=== PATIENT | male | born 2000 | race Caucasian/White ===

== ENCOUNTER 2021-02-10 15:33 | Emergency (ER) | payer OTHER, SELFPAY ==
[2021-02-10 15:36] VITALS: BP 122/91; PULSE 107; RESP 18; TEMP 36.4; O2SAT 97; BMI 24.3
--- NOTE | 2021-02-10 15:46 | ED.VIS.GEN ---
History of Present Illness Chief Complaint: Upper Extremity Injury Narrative: Patient presents with a left shoulder dislocation while playing volleyball. He tells me this is his fifth time dislocating his shoulder. No new injury no other injury. Past medical history: none Medications: Reviewed Social history: Noncontributory Review of systems: Musculoskeletal: Left shoulder dislocation as in HPI Skin: No abrasions or lacerations Neurological: No weakness or paresthesias Hematologic: No easy bleeding or easy bruising Physical exam General: Patient does not appear in significant distress he is laying on the bed. Head: Normocephalic, Atraumatic Neck: No C-spine tenderness Cardiovascular: Regular rate, Regular rhythm Respiratory: No distress, CTA bilaterally Back: Nontender, Normal Inspection. Extremities: Left shoulder anterior inferior dislocation clinically. Neurovascular intact distally Skin: No abrasions, no lacerations Neurological: Normal strength and sensation Past Medical History - Allergies and Home Meds Allergies/Adverse Reactions: Allergies No Known Allergies Allergy (Verified 02/10/21 15:34) Primary Care Physician: Dirk Brown MD [STAFF PHYSICIAN] - 2 Days Physical Exam Vital Signs/Narrative: Vital Signs Temp Pulse Resp BP Pulse Ox 02/10/21 15:36 97.5 F L 107 H 18 122/91 H 97 Diagnostic/Tx/Re-eval Left shoulder x-ray 1 view shows normal anatomy, reduced shoulder. It was read by the emergency doctor at the bedside. Procedures Procedure(s): Shoulder reduction. Verbal consent. Patient did not want sedation. Over 2 to 3 minutes I used a modified Milch technique and shoulder reduced quite easily. Patient tolerated procedure well. Post reduction x-ray showed normal anatomy ED Disposition - Plan for ED Patient: Disposition: Home or Assisted Living Diagnosis: Shoulder dislocation Instructions: ED Dislocation: Shoulder (Reduced) Referrals: Dirk Brown MD [STAFF PHYSICIAN] - 2 Days
--- NOTE | 2021-02-10 15:59 | RAD_ITS ---
STUDY: X-RAY - LEFT SHOULDER REASON FOR EXAM: Male, 20 years old. s/p reduction TECHNIQUE: Single view(s) of the shoulder. COMPARISON: None. FINDINGS: Normal glenohumeral articulation. Normal acromioclavicular joint. Normal acromion. Normal humeral head and visualized proximal humerus. The soft tissue structures are unremarkable. Normal visualized pulmonary apex. RAD/Shoulder One View IMPRESSION: Normal alignment of the left shoulder Electronically Signed: Arun Mcdowell MD ([place]) at 16:13 EDT , Service support ,
[2021-02-10 16:23] VITALS: BP 122/89; PULSE 94; RESP 18
== END 2021-02-10 16:24 | disposition home or self-care (01) ==
PROVIDERS: Emergency Provider Emergency Medicine; PCP Pediatrics
DX: S43.005A Unspecified dislocation of left shoulder joint, initial encounter (principal); X58.XXXA Exposure to other specified factors, initial encounter; Y93.68 Activity, volleyball (beach) (court); Y92.9 Unspecified place or not applicable; Y99.9 Unspecified external cause status
CPT/HCPCS: 23650; 73020; 99282

== ENCOUNTER 2021-02-26 16:01 | Outpatient (CLI) | payer OTHER, SELFPAY | END 2021-02-26 16:30 | disposition home or self-care (01) | LOC: IMMUN 03-01 16:02 | PROVIDERS: PCP Pediatrics; Visit Provider Family Medicine | DX: Z23 Encounter for immunization (principal) | CPT/HCPCS: 0031A; 91303 ==